=== PATIENT | female | born 1990 | race African-American/Black ===

== ENCOUNTER 2017-05-07 11:28 | Emergency (ER) | payer SELFPAY ==
[~2017-05-07] VITALS: Wt 70.3 kg
[~2017-05-07 11:28] MED LIST: ACIPHEX20 MG PO; AMOXICILLIN500 MG PO; AMOXIL250 MG PO; AMOXIL500 MG PO; CLARITIN10 MG PO; CYCLOBENZAPRINE10 MG PO; DIFLUCAN150 MG PO; KEFLEX500 MG PO; KENALOG ORABASE5 GM MM; MOTRIN600 MG PO; MOTRIN800 MG PO; Motrin,Rufen800 MG PO; PROVERA5 MG PO; TRAMADOL HCL50 MG PO; TRIMOX500 MG PO; VIBRAMYCIN100 MG PO; ZITHROMAX Z PA250 MG PO
[2017-05-07] MEDS ORDERED: NAPROSYN500 MG PO (11:42)
[2017-05-07] MEDS ORDERED: BACTRIM DS 8001 TA1 PO (11:42)
[2017-05-07] MEDS ORDERED: KEFLEX500 M1 PO (11:42)
== END 2017-05-07 13:30 | disposition home or self-care (01) ==
LOC: ED 11:28
DX: L03.011 Cellulitis of right finger (principal); R03.0 Elevated blood-pressure reading, without diagnosis of hypertension; F17.200 Nicotine dependence, unspecified, uncomplicated

== ENCOUNTER 2017-05-09 00:20 | Emergency (ER) | payer SELFPAY ==
[~2017-05-09] VITALS: Ht 165.1 cm; Wt 81.6 kg
[~2017-05-09 00:20] MED LIST changes: +BACTRIM DS 8001 TA1 PO; +KEFLEX500 M1 PO; +NAPROSYN500 MG PO
== END 2017-05-09 01:12 | disposition home or self-care (01) ==
LOC: ED 00:20
DX: L03.011 Cellulitis of right finger (principal); F17.200 Nicotine dependence, unspecified, uncomplicated; Z88.6 Allergy status to analgesic agent

== ENCOUNTER 2018-01-24 05:48 | Emergency (ER) | payer SELFPAY ==
[~2018-01-24] VITALS: Ht 165.1 cm; Wt 86.2 kg
--- NOTE | ~2018-01-24 | EKG ---
[place], [place] ELECTROCARDIOGRAM REPORT NAME: THAIS CHRISTIANSON UNIT #: [id number] ROOM: DOCTOR: JONATHAN ORTIZ MD BIRTHDATE: [birth year] DOS: 01/24/2018 TIME: 0631 hours. Normal sinus rhythm at 60 beats per minute. Low voltage T waves in V3 and V4. No previous tracing is available for comparison. JONATHAN ORTIZ MD CM:EKGRPT:ELECTROCARDIOGRAM REPORT [id number] JONATHAN ORTIZ MD
[2018-01-24 06:27] LABS: BASO % 0.4 % (0.0-1.0); EOS # 0.3 10*3/uL (0.0-0.4); EOS % 6.6 % (1.0-4.0); HEMATOCRIT 34.2 % (37.0-47.0); HEMOGLOBIN 12.2 g/dl (12.0-16.0); LYMPH # 1.7 10*3/uL (1.3-4.4); MEAN CELL VOLUME 87.9 fl (81.0-99.0); MEAN CORPUSCULAR HGB 31.4 pg (27.0-31.0); MEAN CORPUSCULAR HGB CONC 35.7 g/dl (33.0-37.0); MEAN PLATELET VOLUME 9.8 fl (9.6-12.3); MONO # 0.5 10*3/uL (0.1-1.0); MONO % 10.8 % (3.0-9.0); NEUT # 2.2 10*3/uL (2.3-7.9); PLATELET COUNT AUTOMATED 247 10*3/uL (130-400); RED BLOOD COUNT 3.89 10*6/uL (4.10-5.10); RED CELL DISTRI WIDTH 12.7 % (0-14.5); WHITE BLOOD COUNT 4.7 10*3/uL (4.8-10.8)
[2018-01-24 06:45] LABS: ALBUMIN 3.8 gm/dl (3.1-4.5); ALKALINE PHOSPHATASE 81 U/L (45-117); BUN 10 mg/dl (7-24); CHLORIDE 104 mmol/L (98-107); CREATININE 1.03 mg/dL (0.55-1.02); POTASSIUM 3.9 mmol/L (3.5-5.1); SGOT/AST 19 IU/L (3-35); SGPT/ALT 20 U/L (12-78); SODIUM 140 mmol/L (136-145); TOTAL PROTEIN 7.4 gm/dL (6.4-8.2)
[2018-01-24 06:47] LABS: TROPONIN I < 0.015 ng/ml (<0.045)
== END 2018-01-24 07:18 | disposition home or self-care (01) ==
LOC: ED 05:48
PROVIDERS: Student in an Organized Health Care Education/Training Program
DX: R07.89 Other chest pain (principal); Z88.8 Allergy status to other drugs, medicaments and biological substances

== ENCOUNTER → 2022-09-02 | Outpatient (CLI) | payer MEDICAID ==
[2022-09-03 05:06] LABS: HBSAG Negative (Negative); HEP B CORE AB, IGM Negative (Negative); HEPATITIS C ANTIBODY <0.1 (0.0-0.9)
== END | disposition home or self-care (01) ==
LOC: LAB 12:15
PROVIDERS: ATTEND Nurse Practitioner Women's Health
DX: N94.6 Dysmenorrhea, unspecified (principal); N92.1 Excessive and frequent menstruation with irregular cycle

== ENCOUNTER 2022-11-01 08:26 | Emergency (ER) | payer MEDICAID ==
[~2022-11-01] VITALS: Ht 160 cm; Wt 71.7 kg
[2022-11-01 09:05] LABS: BASO % 0.3 % (0.0-1.0); EOS % 0.1 % (1.0-4.0); HEMATOCRIT 35.8 % (37.0-47.0); LYMPH # 0.9 10*3/uL (1.3-4.4); LYMPH % 8.6 % (27.0-41.0); MEAN CELL VOLUME 85.4 fl (81.0-99.0); MEAN CORPUSCULAR HGB 30.3 pg (27.0-31.0); MEAN CORPUSCULAR HGB CONC 35.5 g/dl (33.0-37.0); MONO # 0.5 10*3/uL (0.1-1.0); MONO % 5.1 % (3.0-9.0); NEUT # 8.5 10*3/uL (2.3-7.9); NEUT % 85.3 % (47.0-73.0); PLATELET COUNT AUTOMATED 376 10*3/uL (130-400); RED BLOOD COUNT 4.19 10*6/uL (4.10-5.10); RED CELL DISTRI WIDTH 13.4 % (0-14.5)
[2022-11-01 09:21] LABS: ALKALINE PHOSPHATASE 59 U/L (46-116); BUN 11 mg/dl (9-23); CHLORIDE 104 mmol/L (98-107); CREATININE 0.88 mg/dL (0.55-1.02); POTASSIUM 3.5 mmol/L (3.4-5.1); SGPT/ALT 10 U/L (10-49); SODIUM 139 mmol/L (136-145)
[2022-11-01 09:22] LABS: TOTAL PROTEIN 7.7 gm/dL (6.0-8.0)
[2022-11-01] MEDS ORDERED: ONDANSETRON4 MG SL (10:39)
== END 2022-11-01 10:58 | disposition home or self-care (01) ==
LOC: ED 08:26
PROVIDERS: Family Medicine
DX: B34.9 Viral infection, unspecified (principal); Z20.822 Contact with and (suspected) exposure to COVID-19; Z88.8 Allergy status to other drugs, medicaments and biological substances